=== PATIENT | male | born 1980 | race Caucasian/White ===

== ENCOUNTER 2018-03-14 19:34 | Emergency (ER) | payer SELFPAY ==
[~2018-03-14] VITALS: Ht 165.1 cm; Wt 73.8 kg
[2018-03-14 20:15] LABS: HEMATOCRIT 45.9 % (38.0-50.0); HEMOGLOBIN 15.6 G/DL (12.5-16.6); MCH 28.9 PG (29.0-34.0); MCV 85.2 FL (86-99); PLATELET COUNT 278 K/uL (156-360); RBC DIS.WIDTH-CV 12.8 % (11.8-14.6); RBC DIS.WIDTH-SD 39.8 % (39-53); RED BLOOD COUNT 5.39 M/uL (4.00-5.50); WHITE BLOOD COUNT 9.6 K/uL (4.1-10.2)
[2018-03-14 20:20] LABS: APPEARANCE CLEAR ((CLEAR)); BILIRUBIN NEGATIVE; BLOOD NEGATIVE; COLOR YELLOW ((YELLOW)); GLUCOSE (STRIP) NEGATIVE; KETONES NEGATIVE; LEUKOCYTES NEGATIVE; NITRITE NEGATIVE; PROTEIN (STRIP) NEGATIVE; SPECIFIC GRAVITY 1.033 (1.000-1.030)
[2018-03-14 20:33] LABS: ALBUMIN 4.6 g/dL (3.2-4.8); CHLORIDE 106 mEq/L (99-109); POTASSIUM 5.3 mEq/L (3.7-5.4); SODIUM 144 mEq/L (136-147)
[2018-03-14 20:35] LABS: GLUCOSE 101 mg/dL (70-99); TOTAL PROTEIN 7.6 g/dL (6.4-8.3)
[2018-03-14 20:37] LABS: TOTAL BILIRUBIN 0.3 mg/dL (0.0-1.0)
[2018-03-14 20:39] LABS: ALKALINE PHOSPHATASE 72 IU/L (3-129); GFR ESTIMATE (CALCULATED) > 59 mL/min/ (58.99-99999)
[2018-03-14 20:40] LABS: AST (GOT) 17 IU/L (2-34); UREA NITROGEN (BUN) 14 mg/dL (9-23)
[2018-03-14 20:42] LABS: ALT (GPT) 22 IU/L (3-49); LIPASE 29 U/L (1.0-51.0)
[2018-03-14] MEDS ORDERED: CARAFATE1 GM PO (20:58)
[2018-03-14] MEDS ORDERED: PEPCID20 MG PO (20:58)
[2018-03-14 21:10] VITALS: BP 133/93
== END 2018-03-14 21:26 | disposition home or self-care (01) ==
LOC: EME 19:34 → RME 19:34
PROVIDERS: Physician Assistant
DX: R10.13 Epigastric pain (principal); Z72.0 Tobacco use
CPT/HCPCS: 80053; 81003; 83690; 85027; 99281; 99283